=== PATIENT | male | born 1990 | race Caucasian/White ===

== ENCOUNTER 2019-12-02 14:37 | Outpatient (CLI) | payer BC, SELFPAY ==
[2019-12-02 17:40] LABS: Basophils Percent Auto 0.6 % (0.2-1.2); Eosinophils Absolute Auto 0.1 K/mm3 (0-0.3); Eosinophils Percent Auto 1.6 % (0-4.4); Hematocrit 49.4 % (42.0-52.0); Hemoglobin 16.1 g/dL (14.0-18.0); Immature Granulocyte Absolute 0.02 K/mm3 (0.00-0.031); Immature Granulocyte Percent A 0.3 % (0-0.5); Lymphocytes Absolute Auto 2.37 K/mm3 (0.9-3.2); Lymphocytes Percent Auto 37.4 % (18.3-44.2); Mean Corpuscular HGB Conc 32.6 g/dl (32-36); Mean Corpuscular Hemoglobin 30.8 pg (26-34); Mean Corpuscular Volume 94.6 fl (80-100); Monocytes Absolute Auto 0.6 K/mm3 (0.1-0.6); Neutrophils Absolute Auto 3.2 K/mm3 (1.3-6.7); Neutrophils Percent Auto 51.1 % (45.5-73.1); Platelet Count Result 224 k/mm3 (150-375); Red Blood Count 5.22 M/mm3 (4.6-6.20); Red Cell Distribution Width 12.5 % (11.5-14.5); White Blood Count 6.3 K/mm3 (4.5-10.0)
[2019-12-02 17:47] LABS: Add Urine Microscopic? YES; Appearance Urine Clear (Clear); Bilirubin Urine Negative (Negative); Blood Urine 1+ (Negative); Color Urine Yellow (Yellow); Glucose Urine UA Negative (Negative); Ketones Urine Negative (Negative); Leukocyte Esterase Ur Negative LEU/UL (Negative); Mucus Urine Rare /lpf; Nitrate Urine Negative (Negative); Protein Urine Negative (Negative); RBC Urine 0-2 /hpf (0-2); Specific Grav Ur 1.012 (1.001-1.035); Squamous Epithelial Cell Urine Rare /hpf (Few); Urobilinogen Urine Negative mg/dL (<2.0); WBC Urine 0-3 /hpf
[2019-12-02 17:56] LABS: LDL Cholesterol Direct 98 mg/dL
[2019-12-02 18:00] LABS: Free T4 Free Thyroxine 0.95 ng/mL (0.78-2.19); Vitamin D 25 Hydroxy 32.4 ng/mL
[2019-12-02 18:50] LABS: Alanine Aminotransferase 25 U/L (4-50); Albumin Level 4.9 g/dL (3.5-5.1); Alkaline Phosphatase 71 U/L (38-126); Aspartate Amino Transferase 25 U/L (17-59); Bilirubin,Total 0.7 mg/dL (0.2-1.3); Blood Urea Nitrogen 20 mg/dL (9-20); CRP 0.8 mg/dL (<1.0); Calcium 9.8 mg/dL (8.4-10.2); Carbon Dioxide 24 mmol/L (22-30); Chloride 101 mmol/L (98-107); Cholesterol 147 mg/dL (0-200); Estimated Glomerular Filt Rate > 60; Glucose 82 mg/dL (75-110); HDL Direct 42 mg/dL; Potassium 4.3 mmol/L (3.4-5.0); Sodium 136 mmol/L (137-145); Triglycerides 100 mg/dL (<150)
[2019-12-02 19:28] LABS: Folic Acid 11.7 ng/mL (2.76->20)
[2019-12-05 14:53] LABS: Testosterone Free 80.3 pg/mL (35.0-155.0); Testosterone Total 412 ng/dL (250-1100)
== END 2019-12-02 14:38 | disposition home or self-care (01) ==
LOC: ANHBWCLAB 14:42
PROVIDERS: PCP Family Medicine; Visit Provider Family Medicine
DX: R10.9 Unspecified abdominal pain (principal); E66.9 Obesity, unspecified; R53.83 Other fatigue; N99.89 Other postprocedural complications and disorders of genitourinary system; G25.81 Restless legs syndrome; G47.19 Other hypersomnia; R07.89 Other chest pain; G89.18 Other acute postprocedural pain; F17.200 Nicotine dependence, unspecified, uncomplicated; Z82.62 Family history of osteoporosis; Z79.899 Other long term (current) drug therapy
CPT/HCPCS: 36415; 80053; 80061; 81001; 82306; 82607; 82746; 84402; 84403; 84439; 84443; 85025; 86140

== ENCOUNTER 2019-12-03 08:55 | Outpatient (CLI) | payer BC, SELFPAY ==
[2019-12-06 06:19] LABS: C-Peptide 2.14 ng/mL (0.80-3.85); FSH 7.6 mIU/mL (1.6-8.0); LH 6.4 mIU/mL (1.5-9.3); Triiodothyronine T3 Free 3.1 pg/mL (2.3-4.2)
[2019-12-06 10:32] LABS: T3 Reverse 13 ng/dL (8-25)
[2019-12-07 23:27] LABS: Estradiol, Ultrasensitive 24 pg/mL (< OR = 29)
== END 2019-12-03 08:56 | disposition home or self-care (01) ==
LOC: ANHBWCLAB 09:00
PROVIDERS: PCP Family Medicine; Visit Provider Family Medicine
DX: R10.9 Unspecified abdominal pain (principal); E66.9 Obesity, unspecified; Z87.891 Personal history of nicotine dependence; R53.83 Other fatigue; Z79.899 Other long term (current) drug therapy; Z82.62 Family history of osteoporosis
CPT/HCPCS: 36415; 82670; 83001; 83002; 84481; 84482; 84681

== ENCOUNTER 2019-12-10 08:34 | Outpatient (CLI) | payer BC, SELFPAY ==
--- NOTE | ~2019-12-10 | XR_ITS ---
EXAMINATION: XR abdomen/kub 1V DATE: 12/10/2019 08:50 INDICATION: Unspecified abdominal pain. TECHNIQUE: A supine view of the abdomen on 3 radiographs was obtained. COMPARISON: CT abdomen and pelvis 12/06/2006 FINDINGS: There are no dilated loops of bowel. There is a moderate volume of stool in the colon. Ther e is no visible urolithiasis. IMPRESSION: 1. Normal bowel gas pattern. Reviewed, dictated and finalized at location A. GE RIGGER
--- NOTE | ~2019-12-10 | XR_ITS ---
EXAMINATION: XR chest 2V DATE: 12/10/2019 08:50 INDICATION: Other chest pain. TECHNIQUE: Frontal and lateral views of the chest were obtained. COMPARISON: None. FINDINGS: The chest demonstrates clear lungs without pneumonia, pleural effusion, or pneumothorax. Th e heart size is normal. IMPRESSION: 1. No acute cardiopulmonary disease. Reviewed, dictated and finalized at location A. F MINE WARFARE OFFICER
== END 2019-12-10 08:35 | disposition home or self-care (01) ==
LOC: ANHBWCIMG 08:36
PROVIDERS: PCP Family Medicine; Visit Provider Family Medicine
DX: G89.18 Other acute postprocedural pain (principal); R07.89 Other chest pain; R10.9 Unspecified abdominal pain
CPT/HCPCS: 71046; 74018

== ENCOUNTER 2019-12-11 11:25 | Outpatient (CLI) | payer BC, SELFPAY ==
--- NOTE | ~2019-12-11 | US_ITS ---
EXAMINATION: US abdomen complete EXAM DATE: 12/11/2019 11:58 INDICATION: Abdominal pain. Possible hernia. TECHNIQUE: Multiple grayscale and Doppler images of the complete abdomen were obtained (by a technolo gist who performed the scan) and subsequently reviewed. There is no prior study for comparison. FINDINGS: The abdominal aorta is normal in caliber. Visualized portion IVC is patent. The pancreatic head a nd body are normal in appearance. The pancreatic tail is not visualized. The liver has normal echogenicity and contour. There are no focal liver lesions identified. There is no evidence of intrahepatic biliary duct dilation. Portal venous flow was seen in the hepatopedal , normal direction and has normal Doppler waveform. Common bile duct measures 4 mm, which is normal. The gallbladder wall is normal in thickness, with ex pected amount of distention. No sonographic evidence of pericholecystic fluid. There is no cholelit hiases. Technologist performing exam reports patient did not demonstrate sonographic Momin's sign. Please note that this sign is less reliable in patients who have received pain medication. Right kidney: There is normal contour and echogenicity. It measures 10.9 x 4.1 x 4.4 centimeters. There are no focal renal lesions identified. There is no hydronephrosis. Left kidney: There is normal contour and echogenicity. It measures 9.6 x 4.0 x 4.1 centimeters. Th ere are no focal renal lesions identified. There is no hydronephrosis. The spleen measures 13.6 centimeters and is morphologically normal. IMPRESSION: 1. Unremarkable complete abdominal ultrasound exam. Reviewed, dictated and finalized at location B. DEPOSIT CLERK
== END 2019-12-11 11:26 | disposition home or self-care (01) ==
LOC: ANHIMG 11:31
PROVIDERS: PCP Family Medicine; Visit Provider Family Medicine
DX: R10.9 Unspecified abdominal pain (principal)
CPT/HCPCS: 76700

== ENCOUNTER 2019-12-31 17:28 | Outpatient (CLI) | payer BC, SELFPAY ==
--- NOTE | ~2019-12-31 | CT_ITS ---
EXAMINATION: CT abdomen wo [facility] EXAM DATE: 12/31/2019 18:23 INDICATION: Right upper quadrant pain. TECHNIQUE: Spiral CT of the abdomen was performed without contrast. Axial, coronal and sagittal emeterio ges were reviewed. The dose-length product (DLP) for this examination was 1203.25 mGy-cm. The expos ure was tailored according to patient size (auto mA exposure control), and iterative reconstruction ( ASIR) was used as additional dose reduction technique. There is no prior study for comparison. FINDINGS: The liver, spleen, adrenal glands and pancreas are unremarkable. Gallbladder is unremarkab le. No biliary obstruction. There is no nephrolithiasis or hydronephrosis. There is no retroperi toneal lymphadenopathy. The appendix is normal. The stomach and small bowel are unremarkable. There is expected amount of c olonic stool. No free intraperitoneal gas. The heart is normal in size. There are no pericardial or pleural effusions. The lung bases are unremarkable. Chronic bilateral L5 spondylolysis with abo ut 3 mm anterolisthesis L5 on S1. IMPRESSION: 1. No acute abdominal findings. 2. Chronic L5 spondylolysis. Reviewed, dictated and finalized at location A. D INSTALLER
== END 2019-12-31 17:29 | disposition home or self-care (01) ==
PROVIDERS: PCP Family Medicine; Visit Provider Family Medicine
DX: R10.11 Right upper quadrant pain (principal); M47.816 Spondylosis without myelopathy or radiculopathy, lumbar region
CPT/HCPCS: 74150

== ENCOUNTER 2021-11-05 14:21 | Emergency (ER) | payer BC, SELFPAY ==
[2021-11-05 14:30] VITALS: BP 129/69; PULSE 114; RESP 16; TEMP 38.2; O2SAT 98
--- NOTE | 2021-11-05 15:17 | ED.SKABFB ---
HPI - Skin/Abscess/Foreign Bdy General Chief complaint: Skin/Abscess/Foreign Body Stated complaint: Rash Source: patient Mode of arrival: ambulatory Limitations: no limitations History of Present Illness HPI narrative: 30-year-old male presented for complaint of diffuse body rash endorses, onset yesterday. Endorses red raised lesions. Denies any change to soap, detergent, medication etc. Endorses intense pruritus, denies pain or drainage to lesions. Diagnosed with Covid yesterday. MD complaint: rash Related Data Allergies Allergy/AdvReac Type Severity Reaction Status Date / Time No Known Allergies Allergy Mild Verified 11/05/21 14:35 Review of Systems Review of Systems: CONSTITUTIONAL: Endorses body aches, chills, EYES: Denies visual changes, redness, or discharge. ENT: Denies rhinorrhea, congestion, sore throat, or otalgia. CARDIOVASCULAR: Denies chest pain, palpitations, or edema. RESPIRATORY: Endorses cough . GASTROINTESTINAL: Denies abdominal pain, nausea, vomiting, or diarrhea. GENITOURINARY: Denies dysuria or hematuria. SKIN: Endorses rash, itching, MUSCULOSKELETAL: Denies back pain, joint pain, or myalgia. NEUROLOGIC: Denies headache, numbness, tingling, or weakness. PSYCH: Denies depression or anxiety. [facility] Past Medical History Medical History Altered bowel habits Encounter to establish care Snoring Wellness examination Witnessed episode of apnea Surgical History Surgical History History of tonsillectomy and adenoidectomy 2002 Family History Family History Grandparent Lung cancer Grandparent COPD (chronic obstructive pulmonary disease) Mother Breast cancer Social History Social History Smoking packs per day: 1.5 Smoking cigarettes per day: 30.0 Years smoked: 12 Smoking pack-years: 18.00 Smoking status: Current every day smoker Alcohol intake: current Drinks per week: 2 Substance use: never Substance use type: does not use 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 Please see nursing chart for further information. There is no relevant family history pertinent to the presenting complaint Exam Narrative: GENERAL: Ill-appearing, nontoxic HEAD: Normocephalic, atraumatic. EYES: EOMI. No redness or drainage. Conjunctivae normal. ENT: Mucous membranes pink and moist. NECK: Normal AROM. CHEST: No respiratory distress. MUSCULOSKELETAL: No bony tenderness. EXTREMITIES: Normal range of motion. No edema. SKIN: erythematous raised circular lesions over body surface with scratches. Warm, dry NEURO: No focal deficits. Alert and oriented x3. Gait steady. PSYCH: Normal affect. No signs of depression or anxiety. Course Course Emergency Course: Does not appear at this time to be erythema multiforme, bullous, SJS, TEN; no evidence at this time to suggest RMSF, endocarditis or Lyme disease; patient looks well, nontoxic and is tolerating oral intake; no neurologic signs or symptoms; no headache, photophobia or neck pain; afebrile; appropriate for initial outpatient treatment; discussed the importance of follow-up, patient agrees; question, viral exanthema, contact dermatitis, allergic dermatitis, eczema, urticaria. No soft palate or uvula edema, no tongue, no respiratory compromise, no stridor, no wheezing, no wheezing, no history of syncope, no hypotension, no nausea, vomiting, or diarrhea. Instructed patient to go to nearest ER immediately for any worsening symptoms including but not limited to: fever, spreading rash, pain, sore throat, headache, dizziness, chest pain, trouble breathing, or any sy
== END 2021-11-05 15:39 | disposition home or self-care (01) ==
PROVIDERS: Emergency Provider Nurse Practitioner Family
DX: L50.9 Urticaria, unspecified (principal); F17.210 Nicotine dependence, cigarettes, uncomplicated
CPT/HCPCS: 99213; G0463

== ENCOUNTER 2023-05-25 10:15 | Outpatient (CLI) | payer BC, SELFPAY ==
--- NOTE | 2023-05-29 18:49 | WPDHOMESLEEP ---
Sleep Study - Home Unattended Date of Study: 05/25/23 Ordering Provider: Ilene Pearce NP Interpreting Provider: Elsi Alberts, DO Home Sleep Study Type: Watch PAT Height: 1.88 m Weight: 181.437 kg Body Mass Index: 51.3 Neck Circumference (inches): 18 [place]: 12 Reason for Sleep Study Daytime hypersomnia, nocturia Sleep History The patient is a 32-year-old male with hypertension, GERD, nocturia, morbid obesity and current tobacco use that had a sleep study ordered for the evaluation of sleep apnea. The patient rarely awakens from sleep short of breath. He rarely awakens at night with heartburn, belching or cough. He constantly snores loudly enough that others complain. He denies having trouble sleeping when he has a cold. He occasionally wakes up gasping for air throughout the night. He constantly has breathing problems at night observed by himself or others. He denies sweating excessively at night. He denies having heart palpitations or irregular heartbeats during the night. He denies falling asleep while driving. He denies sleep paralysis, cataplexy and hypnagogic / hypnopompic hallucinations. He occasionally has trouble at school or work due to sleepiness. He denies feeling afraid of going to sleep. He rarely has nightmares. He rarely remembers his dreams. He rarely has thoughts racing through his mind. He denies feeling sad, depressed and anxious. He denies having muscular tension. He rarely notices parts of his body jerk. He rarely kicks during the night. He denies having crawling and aching feelings in his legs and rarely has leg pain during the night. He denies grinding his teeth during sleep and denies awakening with morning jaw pain. He constantly is bothered by pain during the day but never awakened by pain during the night. He rarely wakes up feeling stiff in the morning. He rarely wakes up with sore or achy muscles. He constantly wakes up with pain in the neck, spine or other joints. He goes to bed between 2-4 a.m. on both weekdays and weekends. He can fall asleep immediately. He wakes up 2-6 times throughout the night to urinate and is able to fall back asleep immediately. He wakes up at noon on both weekdays and weekends. He typically gets 5-6 hours of sleep per night. He does not stay in bed after waking up in the morning. He currently lives with his and brother. He will consume caffeinated beverages within 2 hours of bedtime. He does not engage in physical exercise before bedtime. He will watch television before falling asleep. He will take naps in the afternoon or the evening but they are not refreshing. He drinks over 200 mg of caffeine per day. He currently smokes 1 pack of cigarettes per day. He denies alcohol and recreational drug use. [facility] Past Medical History Medical History Altered bowel habits COVID-19 10/2021 and 09/2022 Encounter to establish care Hypersomnia Morbid obesity with BMI of 50.0-59.9, adult Screening for diabetes mellitus Snoring Tobacco abuse Urinary frequency Wellness examination Witnessed episode of apnea Surgical History Surgical History History of tonsillectomy and adenoidectomy 2002 Family History Family History Grandparent Lung cancer Grandparent COPD (chronic obstructive pulmonary disease) Mother Breast cancer Social History Social History Smoking packs per day: 1 Smoking cigarettes per day: 20.0 Years smoked: 12 Smoking pack-years: 12.00 Smoking status: Current every day smoker Alcohol intake: current Alcohol use details: Rarely Substance use: never Substance use type: does not use Lack of Transportation: No Lack of Food: Never True Current Housing: I Have Housing Concerned Ab
[2023-05-29 18:57] VITALS: BMI 51.3
== END 2023-05-26 15:23 | disposition home or self-care (01) ==
LOC: ANHCSM 10:15
PROVIDERS: PCP Nurse Practitioner Family; Visit Provider Nurse Practitioner Family
DX: G47.10 Hypersomnia, unspecified (principal); G47.33 Obstructive sleep apnea (adult) (pediatric)
CPT/HCPCS: 95800

== ENCOUNTER 2023-06-19 08:16 | Outpatient (CLI) | payer BC, SELFPAY ==
--- NOTE | ~2023-06-19 | SLEEP.INT_ITS ---
Titration Report Patient Name: NICHOLAS WOODSON Study Date: 06/19/2023 Referring Physician: Dr. Damian Ingram Indications for Polysomnography The patient is a 32 year-old Male who is 6' 2 and weighs 380.0 lbs. His BMI equals 48.8. The patient 's neck circumference is 18 inches. The [place] Sleepiness Scale score was 8. A full night polysomnogram was performed to evaluate the patient for optimal PAP settings. Sleep History The patient is a 32-year-old male with hypertension, GERD, nocturia, morbid obesity and current tobac co use that had a sleep study ordered for the evaluation of sleep apnea. The patient rarely awakens from sleep short of breath. He rarely awakens at night with heartburn, belching or cough. He constantly snores loudly enough that o thers complain. He denies having trouble sleeping when he has a cold. He occasionally wakes up gasping for air throu ghout the night. He constantly has breathing problems at night observed by himself or others. He denies sweating exce ssively at night. He denies having heart palpitations or irregular heartbeats during the night. He denies falling asle ep while driving. He denies sleep paralysis, cataplexy and hypnagogic / hypnopompic hallucinations. He occasionally has t rouble at school or work due to sleepiness. He denies feeling afraid of going to sleep. He rarely has nightmares. H e rarely remembers his dreams. He rarely has thoughts racing through his mind. He denies feeling sad, depressed and an xious. He denies having muscular tension. He rarely notices parts of his body jerk. He rarely kicks during the night . He denies having crawling and aching feelings in his legs and rarely has leg pain during the night. He denies grindin g his teeth during sleep and denies awakening with morning jaw pain. He constantly is bothered by pain during the day b ut never awakened by pain during the night. He rarely wakes up feeling stiff in the morning. He rarely wakes up with sore or achy muscles. He constantly wakes up with pain in the neck, spine or other joints. He goes to bed between 2-4 a.m. on both weekdays and weekends. He can fall asleep immediately. He w akes up 2-6 times throughout the night to urinate and is able to fall back asleep immediately. He wakes up at no on on both weekdays and weekends. He typically gets 5-6 hours of sleep per night. He does not stay in bed after waking up in the morning. He currently lives with his and brother. He will consume caffeinated beverages within 2 hours o f bedtime. He does not engage in physical exercise before bedtime. He will watch television before falling asleep. He will take naps in the afternoon or the evening but they are not refreshing. He drinks over 200 mg of caffeine per day. He currently smokes 1 pack of cigarettes per day. He den ies alcohol and recreational drug use. Medical History Altered bowel habits COVID-19 10/2021 and 09/2022 Encounter to establish care Hypersomnia Lesion of mouth Morbid obesity with BMI of 50.0-59.9, adult Screening for diabetes mellitus Snoring Tobacco abuse Urinary frequency Wellness examination Witnessed episode of apnea Medications acetaminophen PO PRN ibuprofen PO PRN magnesium glycinate PO BID albuterol sulfate 90 mcg/actuation aerosol inhaler 1 - 2 inh inhalation Q4H PRN shortness of breath o r wheezing #8.5 grams bupropion HCl 150 mg 24 hr tablet, extended release (Wellbutrin XL) 150 mg PO QAM #30 tabs multivit hall 1 tablet PO DAILY nystatin 100,000 unit/mL oral suspension 5 ml PO Q6H #200 mL omeprazole 20 mg tablet,delayed release 20 mg PO DAILY Polysomnogram Data A full night polysomnogram using the O-film multi-channel system recorded the standard phys iologic parameters including EEG, EOG, submentalis EMG, anterior tibialis EMG, EKG, body position, nasal and oral airflow us
== END 2023-06-20 05:45 | disposition home or self-care (01) ==
LOC: ANHCSM 08:17
PROVIDERS: PCP Nurse Practitioner Family; Visit Provider Family Medicine
DX: G47.33 Obstructive sleep apnea (adult) (pediatric) (principal)
CPT/HCPCS: 95811

== ENCOUNTER → 2024-11-19 10:43 | Outpatient (CLI) | payer BC, SELFPAY ==
--- NOTE | ~2024-11-19 | XR_ITS ---
Thoracic spine: Clinical Indication: Back pain AP and lateral views were performed. No fracture is seen. There is normal alignment of the vertebrae. The intervertebral disc spaces appe ar normal. Paravertebral soft tissues appear normal. Impression: No significant abnormalities noted. Reviewed, dictated and finalized at [facility]. CLASSIFIER TENDER Impression: No significant abnormalities noted.
--- NOTE | 2024-11-19 10:38 | PC.NURSE ---
out patient xray, no to be seen
== END ==
PROVIDERS: PCP Nurse Practitioner Family; Visit Provider Nurse Practitioner Family
DX: M54.6 Pain in thoracic spine (principal)
CPT/HCPCS: 72070